=== PATIENT | male | born 1955 | race Two or more races ===

== ENCOUNTER 2022-07-04 07:23 | Outpatient (CLI) | payer OTHER | END 2022-07-04 07:39 | disposition home or self-care (01) | LOC: SONOGRAMA 07:23 | PROVIDERS: ATTEND Urology | DX: C61 Malignant neoplasm of prostate (principal); N41.1 Chronic prostatitis; D29.1 Benign neoplasm of prostate; R97.20 Elevated prostate specific antigen [PSA] ==

== ENCOUNTER 2022-12-24 16:59 | Outpatient (CLI) | payer OTHER | END 2022-12-24 17:09 | disposition home or self-care (01) | LOC: LAB 16:59 | PROVIDERS: ATTEND Urology | DX: R97.20 Elevated prostate specific antigen [PSA] (principal) ==

== ENCOUNTER 2023-02-04 16:00 | Inpatient (IN) | payer OTHER ==
[~2023-02-04] VITALS: Ht 167.6 cm; Wt 63.5 kg
== END 2023-02-09 11:40 | disposition home or self-care (01) | DRG 714 ==
LOC: SURH 02-07 08:00 → O/R 02-08 08:32 → SURH 02-08 15:30 → O/R 02-08 15:40 → SURH 02-08 17:17 → SURG 02-08 19:12 → SURH 02-08 19:20
PROVIDERS: ADMIT Urology; ATTEND Urology
PROC: 0TBC8ZX Excision of Bladder Neck, Via Natural or Artificial Opening Endoscopic, Diagnostic (ICD-10-PCS; 2023-02-08)
PROC: 0VT08ZZ Resection of Prostate, Via Natural or Artificial Opening Endoscopic (ICD-10-PCS; principal; 2023-02-08 07:00)
DX: N40.1 Benign prostatic hyperplasia with lower urinary tract symptoms (principal); R33.9 Retention of urine, unspecified; R97.20 Elevated prostate specific antigen [PSA]; R31.0 Gross hematuria

== ENCOUNTER 2023-02-15 19:30 | Inpatient (IN) | payer OTHER ==
[~2023-02-15] VITALS: Ht 167.6 cm; Wt 63.5 kg
--- NOTE | 2023-02-15 19:44 | NUR ---
PACIENTE ALERTA Y ORIENTDA X 3 ACOMPANADO POR FAMILIAR, REFIERE QUE EL VIERNES PASADO DR DION LE REALIZO BIOSIA DE VEGIGA Y PROSTATA Y LE INDICO QUE SI TENIA TEMP REGRESARA A ER. PACIENTE REFIERE MOLESTIA E INFLAMACION EN EL AREA DE LA HERIDA.
--- NOTE | 2023-02-15 20:51 | NUR ---
PACIENTE EVALUADA POR DRA NG QUIEN ORDENA TRATAMIENTO MEDICO SE LE ORIENTA A PACIENTE SOBRE EL MISMO Y VEBRALIZA ENTENDER, SE LE COLECTAN MUESTRAS DE LABORATORIO Y SE CANALIZA BAJO MEDIDAS ASEPTICAS, SE COLOCAN IV FLUIDS ADWOA ORDEN.
== END 2023-02-18 17:37 | disposition home or self-care (01) | DRG 690 ==
LOC: ER 19:30 → SURG 22:07
PROVIDERS: ADMIT Urology; ATTEND Urology
DX: N30.00 Acute cystitis without hematuria (principal); B96.20 Unspecified Escherichia coli [E. coli] as the cause of diseases classified elsewhere; N40.1 Benign prostatic hyperplasia with lower urinary tract symptoms

== ENCOUNTER 2023-02-21 19:43 | Emergency (ER) | payer OTHER ==
[~2023-02-21] VITALS: Ht 167.6 cm; Wt 63.5 kg
== END 2023-02-22 08:35 | disposition home or self-care (01) ==
LOC: ER 19:43
DX: N40.1 Benign prostatic hyperplasia with lower urinary tract symptoms (principal); N30.00 Acute cystitis without hematuria; R10.2 Pelvic and perineal pain; R50.9 Fever, unspecified; Z91.041 Radiographic dye allergy status
CPT/HCPCS: 36415; 74177; Q9965